=== PATIENT | female | born 1995 | race Caucasian/White ===

== ENCOUNTER 2024-10-16 09:03 | Outpatient (CLI) | payer OTHER, SELFPAY ==
--- OUTSIDE RECORDS SUMMARY | 2024-10-16 09:14 | XMS_ITS | Encounter Summary ---
Author Organization [facility] Address [facility] [place] [address] Care Team Providers Care Dev Technical Mgr Name Role Phone Benjamín Mckeon MD Primary Care Prov ider Encounter Details Date Type Department Care Team (Late st Contact Info) Description 05/22/2024 [employer] Message Enc [facility] Family Medicine - [address], [address] [place] [address] [phone] Benjamín Mckeon MD [address] [place] [address], [address] [address] Lymph Nodes Social History Tobacco Use Types Packs/Day Years Used Date Smoking Tobacco: Never Passive Smoke Exposure: Never Smokeless Tobacco: Never Alcohol Use Standard Drinks/Week Comments Not Currently 0 (1 standard drink = 0.6 oz pure alcohol) pt reports not actively drinking PHQ-2 Answer Date Recorded Patient Health Questionnaire-2 Score 2 05/08/2024 Comments No Sex and Gender Information Value Date Recorded Sex Assigned at Not on file Legal Sex Female 8:07 PM CDT Gender Identity Not on file Sexual Orientation Not on file documented as of this encounter Plan of Treatment Not on file documented as of this encounter Visit Diagnoses Not on filedocumented in this encounter Additional Health Concerns Assessment Noted Time PHQ-9 Depression Total Score: 6 05/08/19 25 10:51 AM ROVING HAND documented as of this encounter Care Teams Dev Technical Mgr Relationship Specialty Start Date End Date Benjamín Mckeon MD [address] [place] [address] [id number] PCP - General FAMILY PRACTICE 05/08/24 documented as of this encounter
--- OUTSIDE RECORDS SUMMARY | 2024-10-16 09:14 | XMS_ITS | Clinical Summary ---
Author Organization [facility] Address [address] [place] [address] Care Team Providers Care Nail Feeder Name Role Phone Benjamín Mckeon MD Primary Care Prov ider Allergies Active Allergy Reactions Criticality Noted Date Comments Tilactase Unknown 01/25/2017 Lactose Hives,Other (see comment) Medium 06/23/2012 Patient states she cannot digest dairy products. She gets rash and hives High sensitivity to lactose prefers not to ingest. High sensitivity to lactose prefers not to ingest. Patient states she cannot digest dairy products. She gets rash and hives High sensitivity to lactose prefers not to ingest. Patient states she cannot digest dairy products. She gets rash and hives Patient states she cannot digest dairy products. She gets rash and hives High sensitivity to lactose prefers not to ingest. Patient states she cannot digest dairy products. She gets rash and hives High sensitivity to lactose prefers not to ingest. Milk (Cow) Unknown 06/28/2015 Medications cholecalciferol 125 MCG (5000 UT) Tab Take 2,000 Units by mouth daily. Active famotidine 10 MG tabletIndication s:Gastroesophage al reflux disease, unspecified whether esophagitis present Take 1 tablet (10 mg total) by mouth as needed in the morning and 1 tablet (10 mg total) as needed in the evening for Heartburn. 60 tablet 2 2 Active vitamin B-12 (CYANOCOBALAMIN) (CYANOCOBALAMIN) 1000 mcg tablet Take 1 tablet (1,000 mcg total) by mouth daily. 3 Active clobetasol (TEMOVATE) 0.05 % cream APPLY A THIN FILM TOPICALLY TO HANDS TWICE DAILY FOR UP TO 2 WEEKS MAX AT A TIME 3 Active progesterone (PROMETRIUM) 200 MG capsule Take 1 capsule (200 mg total) by mouth. 3 Active escitalopram (LEXAPRO) 10 MG tablet Take 1 tablet (10 mg total) by mouth daily. 4 Active omeprazole (PRILOSEC) 20 MG capsuleIndicatio ns:Throat pain in adult Take 1 capsule (20 mg total) by mouth daily. 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 Female hypogonadism 10/31/2018 Class 3 severe obesity due t o excess calories without serious comorbidity with body mass index (BMI) of 40.0 to 44.9 in adult 2018 Hx of acute juvenile rheumatoid arthritis 2017 Overview (12/23/2022): questionably accurate Dx ([facility]') Lactose intolerance 11/12/2017 Obesity (BMI 30-39.9) 11/12/2017 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 Borderline diabetes mellitus 04/17/2016 Vitamin D deficiency 04/02/2016 Low vitamin D level 11/26/2015 Dermatitis 11/14/2015 Depression 10/24/2015 Ankle injury 10/02/2015 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 Primary amenorrhea 05/03/2015 Closed fracture of metatarsal bone 07/21/2012 Overview (12/23/2022): Immunizations Immunization Administration Dates Next Due Hepatitis A (Havrix [address]) 09/08/2019 Influenza Adult (Generic) 12/27/2017(Deferred: P atient Refused) Family History Medical History Relation Comments Alcohol Abuse Father Hypertension Father Diabetes Maternal Grandmother Diabetes Mother Hypertension Mother Diabetes Paternal Grandmother Relation Status Comments Father Alive Maternal Grandmother Mother Alive Paternal Grandmother Social History Tobacco Use Types Packs/Day Years Used Date Smoking Tobacco: Never Passive Smoke Exposure: Never Smokeless Tobacco: Never Tobacco Cessation:Counseling Given: No Alcohol Use Standard Drinks/Week Comments Not Currently 0 (1 standard drink = 0.6 oz pure alcohol) pt reports not actively drinking PHQ-2 Answer Date Recorded Patient Health Questionnaire-2 Score 2 05/08/2024 Comments No Sex and Gender Information Value Date Recorded Sex Assigned at Not on file Legal Sex Female 8:07 PM CDT Gender Identity Not on file Sexual Orientation Not on file Last Filed Vital Signs Vital Sign Reading Time Taken Comments Blood Pressure 136/90 05/08/2024 10:53 AM SLURRY TANK TENDER Pulse 76 05/08/2024 10:37 AM SLURRY TANK TENDER Temperature 36.5 C (97.7 F) 05/08/2024 10:37 AM SLURRY TANK TENDER Respiratory Rate 18 05/08/2024 10:3 7 AM SLURRY TANK TENDER Oxygen Saturation 98% 05/08/2024 10: 37 AM SLURRY TANK TENDER Inhaled Oxygen Concentration - - Weight 129.4 kg (285 lb 4.8 oz) 025 10:37 AM SLURRY TANK TENDER Height 172.7 cm (5' 8) 05/08/2024 10:3 7 AM SLURRY TANK TENDER Body Mass Index 43.38 05/08/2024 10:37 AM SLURRY TANK TENDER Plan of Treatment Health Maintenance Due Date Last Done Comments Kidney Health Evaluation 1995 Lipid Panel 1995 Annual Physical 07/07/1998 Diabetes: Retinopathy Eye Exam 07/07/2013 Hepatitis C 07/07/2013 DTaP, Tdap and Td Vaccines (1 - Tdap) 07/07/2014 Hepatitis B Vaccines (1 of 3 - 19+ 3-dose series) 07/07/2014 Pneumococcal Vaccine: Pediatrics (0 to 5 Years) and At-Risk Patients (6 to 49 Years) (1 of 2 - PCV) 07/07/2014 HPV Vaccines (1 - 3-dose SCDM series) 07/07/2022 COVID-19 Vaccine ( season) 2023 Hemoglobin A1C 06/18/2024 12/20/2023, 0204/2023, 08/13/2022, Additional history exists Cervical Cancer Screening Pap Smear (Age 21 to 29) Every 3 Years 05/27/2026 05/28/2023 Cervical Cancer Screening 05/27/2026 PHQ-2 (Physician [place]) Completed 05/08/2024 Meningococcal B Vaccine Aged Out No l onger eligible based on patient's age to complete this topic Meningococcal Vaccine Aged Out No kendall yvonne eligible based on patient's age to complete this topic RSV Immunizations Under 20 Months Aged Out No longer eligible based on patient's age to complete this topic Procedures Procedure Name Priority Date/Time Associated Diagnosis Comments HEMOGLOBIN, GLYCOSYLATED Routine 12/20/2023 from Last 3 Months or Most Recently Relevant to Health Maintenance Results * HEMOGLOBIN, GLYCOSYLATED (12/20/2023) HGB A1C 6.5 % 12/20/2023 [facility] LABORATORY Final Res ult from Last 3 Months or Most Recently Relevant to Health Maintenance Insurance [employer] Care Teams Nail Feeder Relationship Specialty Start Date End Date Benjamín Mckeon MD [address] [place] [address], [place] [address] PCP - General FAMILY PRACTICE 05/08/24
--- OUTSIDE RECORDS SUMMARY | 2024-10-16 09:14 | XMS_ITS | Clinical Summary ---
Author Organization [facility] Address [address] [place] [address] Phone Care Team Providers Care Chief Learning Officer Name Role Phone Sabra Stock MD Primary Care Provider [phone] Paul Harris MD Unavailable [phone] Allergies Active Allergy Reactions Criticality Noted Date Comments Lactase Unknown Low 01/25/2017 Lactose Hives,Other (see Comments) Medium 06/23/2012 Patient states she cannot digest [...] prefers not to ingest. Milk (Cow) Unknown Low 06/28/2015 Medications estradiol (VIVELLE) 0.1 MG/24HR PATCH BIWEEKLY APPLY 1 PATCH TOPICALLY TO THE SKIN 2 TIMES A WEEK Active cyanocobalamin 1000 MCG Tablet Take 1,000 mcg by mouth. 3 Active omeprazole (PriLOSEC) 20 MG CAPSULE DELAYED RELEASE Take 20 mg by mouth. 4 Active escitalopram (LEXAPRO) 10 MG Tablet Take 10 mg by mouth daily. 4 Active Vitamin D3 (Cholecalcifero l) 125 MCG Tablet Take 2,000 Units by mouth. 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 Family History Medical History Relation Name Comments Heart Attack Father Heart Disease Father Cancer Maternal Grandfather leukemi a Relation Name Status Comments Brother 1 Alive Brother 2 Alive Father Alive Maternal Grandfather Mother Alive Sister Alive Social History Tobacco Use Types Packs/Day Years Used Date Smoking Tobacco: Never Smokeless Tobacco: Never Tobacco Cessation:Counseling Given: No Alcohol Use Standard Drinks/Week Comments Never 0 (1 standard drink = 0.6 oz pur e alcohol) Comments Unknown Sex and Gender Information Value Date Recorded Sex Assigned at Not on file Legal Sex Female 4:14 PM CDT Gender Identity Not on file Sexual Orientation Not on file Last Filed Vital Signs Vital Sign Reading Time Taken Comments Blood Pressure 124/76 08/13/2023 1:18 PM CDT Pulse 110 08/13/2023 1:18 PM CDT Temperature 36.6 C (97.8 F) 08/13/2023 1:18 PM CDT Respiratory Rate 18 08/13/2023 1:18 PM CDT Oxygen Saturation 98% 08/13/2023 1:18 PM CDT Inhaled Oxygen Concentration - - Weight 128.5 kg (283 lb 4.8 oz) 08/13/2023 1:18 PM CDT Height 170.2 cm (5' 7) 08/13/2023 1:18 PM CDT Body Mass Index 44.37 08/13/2023 1:18 PM CDT Plan of Treatment Health Maintenance Due Date Last Done Comments Hepatitis C Virus (HCV) Screening 1995 TdaP Immunization 1995 Human Papillomavirus (HPV) Immunization (1 - 3-dose series) 07/07/2010 Hepatitis B Immunization (1 of 3 - 19+ 3-dose series) 07/07/2014 Pap Smear 07/07/2016 SARS-COV-2 Immunization (1 - 2023- season) 2023 Influenza Immunization (#1) 2024 Respiratory Syncytial Virus (RSV) Immunization (Adult) (1 - 1-dose 75+ series) 07/07/2070 Meningococcal Immunization (ACWY) Aged Out No longer eligible based on patient's age to complete this topic Pneumococcal Immunization Combined Aged Out No longer eligible based on patient's age to complete this topic Rotavirus Immunization Aged Out No lo nger eligible based on patient's age to complete this topic Insurance [employer] Care Teams Chief Learning Officer Relationship Specialty Start Date End Date Sabra Stock MD [address] [place] [id number] PCP - General Family Medicine 06/21/23 Paul Harris MD [address] [place] [address] [phone] Oncology 06/21/23
--- OUTSIDE RECORDS SUMMARY | 2024-10-16 09:14 | XMS_ITS | Continuity of Care Document ---
Author Organization [facility] Address [address] [address] Phone Care Team Providers Care Library Customer Service Clerk Name Role Phone Geetha Marcus MD Unavailable Unavailable Allergies, Adverse Reactions, Alerts Substance Reaction Status Criticality No Known Allergies Active No Inform ation Procedures Procedure Date Perc Test New (Level 4) OFFICE/OUTPATIENT VISIT Miscellaneous Private Pay Fees Advance Directives Directive Yes / No Effective Date File Name No Information Encounters Encounter Description Practice Location Reason(s) For Visit Diagnoses Date Provider Providers Copied on Encounter [facility], [address] [place] [address], [id number], tel:[phone] [facility] No Information 3 Amrit Iniguez. [address] [place] [address], [id number] , [place]. tel: [phone] New (Level 4) OFFICE/OUTPATI ENT VISIT [facility], [address] [place] [address], [id number], tel:[phone] [facility] eczema (chief complaint) Body mass index (BMI) 40.0-44.9, adultRashOther allergic rhinitisOther adverse food reaction, initial encounter 3 Amrit Iniguez. [address] [place] [address], [id number] , . tel: [phone] Referring Provider: Geetha Gutierreze, [address], [place], [address] . tel:[phone] Miscellaneous Private Pay Fees [facility], [address], [place], [place], [id number], tel:[phone] [facility] No Information Mis Prov. . Referring Provider: Geetha Gutierreze, [address], [place], [address] . tel:[phone] Family History Family Member Type Diagnosis Age At Onset Mother Problem Contact Dermatitis Payers Payer name Insurance type Covered green party ID Penny lindsay(molly Rubio CI [id number] Social History Type Description Quantity Date Captured Comments Sex Female Smoking Status No Information Chief Complaint And Reason For Visit No Information Reason For Referral Reason For Referral No Information History Of Present Illness Encounter Date Complaint History Of Josesito nt Illness eczema This is her init ial visit. She presents today for evaluation of eczema. Symptoms started about 6 months ago (end of July/early August) and are not improving. Lesions are on her hand, mainly her R hand. "Little white dogs with fluid. Her PCP prescribed topical steroids (topical triamcinalone), which helped somewhat but her skin became dry and scratchy. Lesions developed yellow drainage. Ventral surface of digits 2-4 of R hand most affected. Her PCP astutely noted she typically holds her phone in her R hand across those fingers. She has a h/o sensitive skin and has always been careful with topical products. No new products. She tries to avoid parabens due to an MD advising mom to avoiding parabens. She has abdominal cramps, diarrhea, vomiting, rash/eczema and swelling (foot) with cow's milk. She avoids milk. With accidental ingestions of milk, she has had projectile vomiting for 3 days and diarrhea. Skin testing was reportedly negative. Immunocap was negative in her blood in . 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 Her mom stopped the methotrexate and she did not follow-up. When she started to avoid milk, her joint pain improved. She has not had She has taken OA PRN for ARC symptoms. Her main triggers are mold, the fall, strong scents/odors and humidity/temperature changes. Allergy symptoms worsened after removing back to [facility]. She is curious if she could be allergic to dog as she lives with a dog. She has had headaches with Stevia. She was dx with a pituitary tumor at 19yo. Followed with [facility]. No h/o asthma. Meds: Estradiol, PrometriumPMH: Eczema, +H/o pituitary tumor (Dx 19yo)Sx: NoneNKDAFH: Mother - Contact dermatitisSocial: +1 dog at home. Lives in single family home, built in [address]. Non-smoker. 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 Functional Status Date Functional Assessmen t No Information Instructions Date Instruction Additional Infor katerina Giving encouragement to exercise Related to Body mass index [BMI] 40.0-44.9, adult Assessments Type Assessment Date No Information Patient Care Teams Name Effective Dates (start - stop) Status Members No Information
--- OUTSIDE RECORDS SUMMARY | 2024-10-16 09:15 | XMS_ITS | Encounter Summary ---
Author Organization [facility] Address Counts include 234 beds at the [facility] [place] [address] Care Team Providers Care Ux Developer Designer Name Role Phone Sabra Stock MD Primary Care Provider [phone] Myra Benjamín WILLOUGHBY MD Primary Care Prov ider Encounter Details Date Type Department Care Team (Late st Contact Info) Description 03/13/2022 magnetic.iot Message Enc [facility] Family Medicine - [place] [address] [facility], [address] [place] [address] [place] [address] [place] [address] Eczema affecting nail Social History Tobacco Use Types Packs/Day Years Used Date Smoking Tobacco: Never Smokeless Tobacco: Never Alcohol Use Standard Drinks/Week Comments Not Currently 0 (1 standard drink = 0.6 oz pure alcohol) pt reports not actively drinking PHQ-2 Answer Date Recorded PHQ-2 Score - If the patient scores above 3, please move on to questions 3-9 0 08/18/2021 Comments No Sex and Gender Information Value Date Recorded Sex Assigned at Not on file Legal Sex Female 8:07 PM CDT Gender Identity Not on file Sexual Orientation Not on file documented as of this encounter Plan of Treatment Not on file documented as of this encounter Visit Diagnoses Not on filedocumented in this encounter Additional Health Concerns Infection Onset Date Last Indicated Resolved Time COVID-19 Rule Out 12/23/2022 12/23/2022 12/23/2022 1:09 PM CDT Assessment Noted Time PHQ-9 Depression Total Score: 0 09/04/19 21 8:44 AM CDT documented as of this encounter Care Teams Ux Developer Designer Relationship Specialty Start Date End Date Sabra Stock MD PCP - General FAMILY PRACTICE 06/08/18 05/07/24 Benajmín Mckeon MD [address] [place] [id number] PCP - General FAMILY PRACTICE 05/08/24 documented as of this encounter
--- OUTSIDE RECORDS SUMMARY | 2024-10-16 09:15 | XMS_ITS | Clinical Summary ---
Author Organization [facility] Address [address] [place] [address] Care Team Providers Care Integrity Engineer Name Role Phone Sabra Stock MD Primary Care Provider [phone] Allergies Active Allergy Reactions Criticality Noted Date Comments Lactose Other (See comments),Hives Medium 06/23/2012 Patient states she cannot digest [...] to lactose prefers not to ingest. Milk Unknown Low 06/28/2015 Tilactase Unknown Low 01/25/2017 Medications cholecalciferol (VITAMIN D-3) 5,000 unit tablet Take 1 tablet (5,000 Units total) by mouth every morning 7 Active omeprazole (PriLOSEC) 20 mg capsuleIndication s:Treatment of Non-Bleeding Gastric Disorder Take 1 capsule (20 mg total) by mouth every morning Active escitalopram (LEXAPRO) 10 mg tabletIndications :Anxiety with Depression Take 1 tablet (10 mg total) by mouth every morning 4 Active cyanocobalamin (Vitamin B-12) 1,000 mcg tabletIndications :Prevention of Vitamin B12 Deficiency Take 1 tablet (1,000 mcg total) by mouth daily Active medroxyPROGESTERo ne (PROVERA) 10 mg tabletIndications :Secondary Amenorrhea Take 1 tablet (10 mg total) by mouth daily 14 tablet 6 4 Active estradioL (VIVELLE-DOT) 0.1 mg/24 hrIndications:Fem kali Hypogonadism Place 1 patch on the skin 2 (two) times a week 24 patch 3 5 07/11/19 Active Active Problems Problem Noted Date Diagnosed Date Class 3 severe obesity due t o excess calories without serious comorbidity with body mass index (BMI) of 40.0 to 44.9 in adult 06/15/2023 Abnormal uterine bleeding 04/11/2023 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 COVID-19 virus infection 02/13/2020 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 Female hypogonadism 10/31/2018 Hx of acute juvenile rheumatoid arthritis 2017 Overview (10/21/2022): questionably accurate Dx (Childrens') Lactose intolerance 11/12/2017 Obesity (BMI 30-39.9) 11/12/2017 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 Borderline diabetes mellitus 04/17/2016 Vitamin D deficiency 04/02/2016 Low vitamin D level 11/26/2015 Dermatitis 11/14/2015 Depression 10/24/2015 Ankle injury 10/02/2015 Intracranial mass 07/05/2015 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 Primary amenorrhea 05/03/2015 Closed fracture of metatarsal bone 07/21/2012 Overview (10/21/2022): Encounters Date Type Department Care Team Description 10/02/2024 Orders Only [facility] Neurosurgery [address], [address] [place] [address] Mykel Manzanares MD Suprasellar mass (Primary Dx) from Last 3 Months Immunizations Immunization Administration Dates Next Due Hep A, Adult 09/08/2019 Surgical History Surgery Date Site/Laterality Comments OTHER SURGICAL HISTORY 03/29/2006 - 03/28/2007 steroid injection in wrist under anesthesia EXAMINATION UNDER ANESTHESIA 05/28/2023 EXAM UNDER ANESTHESIA HM PAP SMEAR 05/28/2023 PAP SMEAR COMBINED HYSTEROSCOPY DIAGNOSTIC / D&C DX HYSTEROSCOPY, D&C, TRANSVAGINAL ULTRASOUND Medical History Medical History Date Comments Personal history of arthritis Ar thritis - (Added by TW Conv) Family History Medical History Relation Name Comments Anesthesia problems Maternal Grandmother PONV Cancer Maternal Grandmother Diabetes Maternal Grandmother Diabetes Mother Family history of diabetes mellitus - (Added by TW Conv) Hypertension Mother Family history of hypertension - (Added by TW Conv) Cancer Other 1 Reported Family History Of Cancer - grandfather, great uncle (Added by TW Conv) Hypertension Other 2 Reported Previo us High Blood Pressure - mother (Added by TW Conv) Diabetes Other 3 Diabetes Mellit us - mother, grandmothers, aunt (Added by TW Conv) Lung disease Other 4 Pulmonary Disea se - father, great aunts, great uncle (Added by TW Conv) Blindness Other 5 Legally Blind ( [place] Definition) - great grandfather ( Retinitis Pigmentosa) (Added by TW Conv) Diabetes Paternal Grandmother Stroke Paternal Grandmother Thyroid disease Sister Thyroid trou ble - (Added by TW Conv) Relation Name Status Comments Maternal Grandmother Mother Other 1 Other 2 Other 3 Other 4 Other 5 Paternal Grandmother Sister Social History Tobacco Use Types Packs/Day Years Used Date Smoking Tobacco: Never Smokeless Tobacco: Never Tobacco Cessation:Counseling Given: Not Answered AUDIT-C Answer Date Recorded Q1: How often do you have a drink containing alcohol? Never 05/28/2023 Q2: How many drinks containi ng alcohol do you have on a typical day when you are drinking? Patient does not drink Q3: How often do you have si x or more drinks on one occasion? Never 05/28/2023 Personal Safety Answer Date Recorded Have you ever been in or are you currently in a harmful physical or emotional relationship or is someone making you feel afraid or unsafe? Denies 05/28/2023 Comments No Sex and Gender Information Value Date Recorded Sex Assigned at Not on file Legal Sex Female 4:53 AM INSPECTOR BARREL Gender Identity Not on file Sexual Orientation Not on file Obstetrics History Para Term AB IAB SAB Ectopic Multiple Livin g Live Births 0 0 0 0 0 0 0 0 0 0 0 Last Filed Vital Signs Vital Sign Reading Time Taken Comments Blood Pressure 136/97 12/20/2023 12:01 PM CDT Pulse 87 12/20/2023 12:01 PM CDT Temperature 36.6 C (97.9 F) 05/28/2023 2:30 PM INSPECTOR BARREL Respiratory Rate 26 05/28/2023 2:30 PM INSPECTOR BARREL Oxygen Saturation 99% 05/28/2023 2:30 PM INSPECTOR BARREL Inhaled Oxygen Concentration - - Weight 131.1 kg (289 lb) 12/20/2023 12:01 PM CDT Height 170.2 cm (5' 7) 12/20/2023 12:01 PM CDT Body Mass Index 45.26 12/20/2023 12:01 PM CDT Plan of Treatment Health Maintenance Due Date Last Done Comments Albumin Creatinine Ratio, Urine 1995 Depression Screening 1995 Hepatitis C Screening 1995 eGFR 1995 Dilated Eye Exam 1995 Foot Exam 1995 DTaP/Tdap/Td Vaccine (1 - Tdap) 07/07/2006 Varicella Vaccines (1 of 2 - 13+ 2-dose series) 07/07/2008 Hepatitis B Screening 07/07/2013 Regular Well Visit/Exam 18-64 07/07/2013 Pneumococcal vaccine <65 (1 of 2 - PCV) 07/07/2014 Lipid Panel 08/14/2023 08/13/2022, 08/13/2022 Cervical Cancer Screening 05/27/2024 05/28/2023 Hemoglobin A1C 06/18/2024 12/20/2023, 07/27, 08/13/2022, Additional history exists Influenza Vaccine (#1) 2024 HPV Vaccines Aged Out No longer eligi ble based on patient's age to complete this topic Procedures Procedure Name Priority Date/Time Associated Diagnosis Comments POCT HEMOGLOBIN A1C Routine 12/20/2023 1 2:07 PM CDT Type 2 diabetes mellitus without complication, without long-term current use of insulin (HCC) PAP ONLY Routine 05/28/2023 12:43 PM INSPECTOR BARREL LIPID PANEL Routine 08/13/2022 8:08 AM CDT from Last 3 Months or Most Recently Relevant to Health Maintenance Results * POCT hemoglobin A1c (12/20/2023 12:07 PM CDT) Hemoglobin A1C, POC 6.5 4.0 - 5.6 % Blood 12/20/2023 12:0 7 PM CDT us Linwood Grant MD POINT OF CARE TEST ORDERABLES Fi nal Result * Pap Only (Cytology Component) (05/28/2023 12:43 PM INSPECTOR BARREL) Pap test 05/28/2023 12:4 3 PM INSPECTOR BARREL 05/28/2023 2:23 PM INSPECTOR BARREL Narrative 06/04/2023 12:44 PM INSPECTOR BARREL EPIC results best viewed via link to PDF [facility] [place] [address] Note to Patients: This report may contain a detailed description of human tissue sent by a health care provider to the laboratory for pathologic evaluation. The content of this report is essential for diagnosis and may provide important critical findings. This information may be unfamiliar to patients to review without a medical professional present. It is advised that the patient review this report in the presence of a health care provider who can answer questions and explain the details. CYTOPATHOLOGY REPORT FINAL Patient Name: CAN SHELBY Gender: Luis : 1995 (Age: 27) Address: [address] [place] [address] [address] [place] [place] [id number] Hospital #: [id number] Service: Surgery Location: [facility] OR POD Patient Type: [facility] Taken: 05/28/2023 Received: 05/28/2023 Accessioned: 06/02/2023 Reported: 06/04/2023 Physician(s): Deya Harman M.D. FINAL INTERPRETATION SOURCE OF SPECIMEN Liquid based Thin Prep pap: STATEMENT OF ADEQUACY - Satisfactory for evaluation - Endocervical cells/transformation zone sample present GENERAL CATEGORIZATION: - Negative for squamous intraepithelial lesion or malignancy jhosie/06/04/2023 12:44 ALDO Sung(ASCP) Report Electronically Reviewed and Signed Out By ALDO Sung(ASCP) 06/04/2023 12:44:06 Cervicovaginal Cytology (Pap Test) Disclaimer: The Pap test is a screening test used to detect cervical cancer and its precursors; it is not a diagnostic procedure. False negative and false positive results do occur. Pap test results should be interpreted in the context of pertinent clinical information and biopsy results as indicated. [facility] Clinical Laboratory Improvement Amendments (CLIA) mandate that cytologic and histologic results be correlated for laboratory quality assurance supervisor chassis & improvement standards. FOR ALL HIGH-GRADE CASES we request submission of follow-up histological material and/or reports that have not been previously provided so that we may fulfill said required standards. Gross Description A. Liquid based Thin Prep pap: Cervical/vaginal - Screening ThinPrep Clinical Diagnosis and History Last Menstrual Period: Not Provided. The patient is a 27 year old woman with abnormal uterine bleeding. Report Images and scanned documents, if included only viewable in PDF version The performance characteristics of some immunohistochemical stains, in-situ hybridization and fluorescence in-situ hybridization tests and immunophenotyping by flow cytometry cited in this report (if any) were determined by the Surgical Pathology Department at [facility] as part of an ongoing quality reviewer program and in compliance with federally mandated regulations drawn from the Clinical Laboratory Improvement Act of 1988 (CLIA '88). Some of these tests rely on the use of analyte specific reagents and are subject to specific labeling requirements by the US Food and Drug Administration. Such diagnostic tests may only be performed in a facility that is certified by the Department of Health and Human Services as a high complexity laboratory under CLIA '88. The FDA has determined that such clearance or approval is not necessary. This test is used for clinical purposes. It should not be regarded as investigational or for research. Nevertheless, federal rules concerning the medical use of analyte specific reagents require that the following disclaimer be attached to the report: This test was developed and its performance characteristics determined by the Surgical Pathology Department of [facility]. It has not been cleared or approved by the U. S. Food and Drug Administration. Deya Harman MD LAB CYTOLOGY ORDERABLES Lilly l Result * (ABNORMAL) Lipid panel (08/13/2022 8:08 AM CDT) Cholesterol 222(H) <200 mg/dL [facility] HDL 36(L) > OR = 50 mg/dL [facility] Triglycerides 149 <150 mg/dL [facility] LDL 158(H) mg/dL (calc) [facility] Comment: Reference range: <100 Desirable range <100 mg/dL for primary prevention; <70 mg/dL for patients with CHD or diabetic patients with > or = 2 CHD risk factors. LDL-C is now calculated using the Jasen-West calculation, which is a validated novel method providing better accuracy than the Friedewald equation in the estimation of LDL-C. Jasen SS et al. ROOSEVELT. 2013;310(19): 4992-0824 (http://education.[employer]/faq/OEH770) Chol/HDL ratio 6.2(H) <5.0 (calc) [facility] Non-HDL, (LDL+VLDL) 186(H) <130 mg/dL (calc) [facility] Comment: For patients with diabetes plus 1 major ASCVD risk factor, treating to a non-HDL-C goal of <100 mg/dL (LDL-C of <70 mg/dL) is considered a therapeutic option. 08/13/2022 8:08 AM CDT 08/13/2022 8:13 AM CDT Linwood Grant MD LAB BLOOD ORDERABLES Final Resul t [facility] [address] [place] [address] from Last 3 Months or Most Recently Relevant to Health Maintenance Insurance AETNA [facility] HMO [facility] HMO Care Teams Integrity Engineer Relationship Specialty Start Date End Date Sabra Stock MD [address] [facility] [address] [place] [address] PCP - General 04/23/17
--- OUTSIDE RECORDS SUMMARY | 2024-10-16 09:15 | XMS_ITS | Clinical Summary ---
Author Organization [facility] Address [address] [place] [address] Care Team Providers Care Drum Saw Operator Name Role Phone Sabra Stock MD Primary Care Provider [phone] [facility],non-owned Affiliates and Associated Physician Practices is amultiple site organization consisting of ambulatory clinics and hospital sitesin [place], [place], [place] and [place]. This disclosure is being madepursuant to the Care Everywhere program and may not contain all information available regarding this patient. Last updated 17[employer] [facility] Allergies Active Allergy Reactions Criticality Noted Date Comments Lactose Other Medium 06/23/2012 Patient states she cannot digest dairy products. She gets rash and hives High sensitivity to lactose prefers not to ingest. Medications * Be aware that medications may not be up to date on this document. Alwaysverify current medications with the patient. vitamin D3 (CHOLECACIFEROL ) 5000 UNITS Take 1 (one) tablet by mouth once daily Active triamcinolone acetonide (Kenalog) 0.1 % cream APPLY TOPICALLY TO THE AFFECTED AREA TWICE DAILY 2 Active Cyanocobalamin (B-12 PO) Active ondansetron, disintegrating, (Zofran ODT) 4 MG tablet Take 1 (one) tablet by mouth every 6 hours as needed for Nausea/Vomitin g Allow tablet to dissolve on the tongue 20 tablet 3 Active ferrous sulfate 325 (65 FE) MG tablet Take 1 (one) tablet by mouth once daily 100 tablet 3 Active clobetasol (Temovate) 0.05 % cream APPLY A THIN FILM TOPICALLY TO HANDS TWICE DAILY FOR UP TO 2 WEEKS MAX AT A TIME 3 Active mupirocin (Bactroban) 2 % ointment APPLY TOPICALLY TO THE AFFECTED AREA THREE TIMES DAILY FOR 7 DAYS 2 Active metoclopramide (Reglan) 10 MG tablet Take 1 (one) tablet by mouth 4 times daily - before meals & nightly 30 tablet 3 Active Progesterone (Prometrium) 200 MG capsule Take 2 (two) capsules by mouth at bedtime 60 capsule 2 3 Active Active Problems Problem Noted Date Diagnosed Date History of pituitary adenoma 04/14/2023 Hypopituitarism 01/30/2022 BMI 40.0-44.9, adult 02/10/2021 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 Female hypogonadism 10/31/2018 Vitamin D deficiency 10/31/2018 Intracranial mass 07/05/2015 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 Closed fracture of metatarsal bone 07/21/2012 Overview (12/27/2014): Resolved Problems Problem Noted Date Diagnosed Date Resolved Date Brain lesion 07/05/2015 10/31/2018 Immunizations Immunization Administration Dates Next Due HEP A VACCINE, ADULT 09/08/2019 Family History Medical History Relation Name Comments Leukemia Maternal Grandfather Diabetes - Type 2 Maternal Grandmother Diabetes - Type 2 Mother Hypertension Mother Hypertension Paternal Grandfather Diabetes - Type 2 Paternal Grandmother Relation Name Status Comments Maternal Grandfather Maternal Grandmother Alive Mother Alive Paternal Grandfather Paternal Grandmother Alive Social History Tobacco Use Types Packs/Day Years Used Date Smoking Tobacco: Never Smokeless Tobacco: Never Tobacco Cessation:Counseling Given: Not Answered Alcohol Use Standard Drinks/Week Comments No 0 (1 standard drink = 0.6 oz pur e alcohol) Comments No Sex and Gender Information Value Date Recorded Sex Assigned at Female 08/02/2021 8:01 AM CDT Legal Sex Female 8:41 PM CDT Gender Identity Female 08/02/2021 8:01 AM CDT Sexual Orientation Straight 08/02/2021 8: 01 AM CDT Last Filed Vital Signs Vital Sign Reading Time Taken Comments Blood Pressure 132/86 07/21/2022 2:38 PM CDT Pulse 107 07/20/2022 5:19 PM CDT Temperature 36.6 C (97.8 F) 07/20/2022 9:09 AM CDT Respiratory Rate 20 07/20/2022 5:19 PM CDT Oxygen Saturation 97% 07/20/2022 5:19 PM CDT Inhaled Oxygen Concentration - - Weight 128.4 kg (283 lb) 07/21/2022 2:20 PM CDT Height 170.2 cm (5' 7) 07/21/2022 2:20 PM CDT Body Mass Index 44.32 07/21/2022 2:20 PM CDT Plan of Treatment Health Maintenance Due Date Last Done Comments HIV SCREENING 07/07/2010 HEPATITIS C SCREENING 07/03/2013 DTAP/TDAP/TD VACCINES (1 - Tdap) 07/07/2014 HEPATITIS B VACCINE (1 of 3 - 19+ 3-dose series) 07/07/2014 PAP SMEAR 07/07/2016 HPV VACCINE (1 - 3-dose SCDM series) 07/07/2022 COVID-19 VACCINE (1 - 2023-2 5 season) 2023 DEPRESSION SCREENING 03/29/2024 INFLUENZA VACCINE (#1) 2024 ZOSTER VACCINE (1 of 2) 07/07/2045 HIB VACCINE Aged Out No longer eligi ble based on patient's age to complete this topic MENINGOCOCCAL (Group B) VACC INE SHARED DECISION-MAKING Aged Out No longer eligibl e based on patient's age to complete this topic MENINGOCOCCAL GROUPS A/C/Y/W VACCINE Aged Out No longer eligible b ased on patient's age to complete this topic PNEUMOCOCCAL VACCINE Aged Out No long er eligible based on patient's age to complete this topic [place] [address] [employer] MEDICAID - OUT OF STATE [employer] Advance Directives Documents on File Type Date Recorded Patient Inspector Aide Expl anation Adv Directive/Living Will/POA 06/23/2012 10:50 PM Care Teams Drum Saw Operator Relationship Specialty Start Date End Date Sabra Stock MD [facility] [place] [address] PCP - General 09/12/18
--- OUTSIDE RECORDS SUMMARY | 2024-10-16 09:15 | XMS_ITS | Encounter Summary ---
Author Organization [facility] Address [facility] [place] [address] Care Team Providers Care Claims Configuration Analyst Name Role Phone Sabra Stock MD Primary Care Provider Myra Benjamín WILLOUGHBY MD Primary Care Prov ider Encounter Details Date Type Department Care Team (Late st Contact Info) Description 03/24/2022 optionsXpresst Message Enc [facility] Family Medicine - [place] [address], [address] [place] [address] [place] [address] [place] [address] Dietitian Referral Social History Tobacco Use Types Packs/Day Years [...] on file Sexual Orientation Not on file COVID-19 Exposure Response Date Recorded In the last 10 days, have yo u been in contact with someone who was confirmed or suspected to have Coronavirus/COVID-19? No / Unsure 03/17/2022 12:52 PM HAMMER REPAIRER documented as of this encounter Plan of Treatment Not on file documented as of this encounter Visit Diagnoses Not on filedocumented in this encounter Additional Health Concerns Infection Onset Date Last Indicated Resolved Time COVID-19 Rule Out 12/23/2022 12/23/2022 12/23/2022 1:09 PM CDT Assessment Noted Time PHQ-9 Depression Total Score: 0 09/04/19 21 8:44 AM CDT documented as of this encounter Care Teams Claims Configuration Analyst Relationship Specialty Start Date End Date Sabra Stock MD PCP - General FAMILY PRACTICE 06/08/18 05/07/24 Benjamín Mckeon MD [address] [place] [address] PCP - General FAMILY PRACTICE 05/08/24 documented as of this encounter
--- OUTSIDE RECORDS SUMMARY | 2024-10-16 09:15 | XMS_ITS | Encounter Summary ---
Author Organization [facility] Address [facility] [place] [address] Care Team Providers Care Medical Physiologist Name Role Phone Sabra Stock MD Primary Care Provider [phone] Myra Benjamín WILLOUGHBY MD Primary Care Prov ider Encounter Details Date Type Department Care Team (Late st Contact Info) Description 09/11/2020 [employer] Message Enc [facility] Medical [facility] Family Medicine [place] [address] [place] [address] [employer] Provider Referral update Social History Tobacco Use Types Packs/Day Years Used Date Smoking Tobacco: Never Smokeless Tobacco: Never Alcohol Use Standard Drinks/Week Comments Not Currently 0 (1 standard drink = 0.6 oz pur e alcohol) OCCASSIONAL PHQ-2 Answer Date Recorded PHQ-2 Score - If the patient scores above 3, please move on to questions 3-9 0 09/03/2020 Comments No Sex and Gender Information Value Date Recorded Sex Assigned at Not on file Legal Sex Female 8:07 PM CDT Gender Identity Not on file Sexual Orientation Not on file COVID-19 Exposure Response Date Recorded In the last month, have you been in contact with someone who was confirmed or suspected to have Coronavirus / COVID-19? No / Unsure 09/03/2020 8:30 AM CDT documented as of this encounter Plan of Treatment Not on file documented as of this encounter Visit Diagnoses Not on filedocumented in this encounter Additional Health Concerns Infection Onset Date Last Indicated Resolved Time COVID-19 Rule Out 12/23/2022 12/23/2022 12/23/2022 1:09 PM CDT Assessment Noted Time PHQ-9 Depression Total Score: 0 09/04/19 21 8:44 AM CDT documented as of this encounter Care Teams Medical Physiologist Relationship Specialty Start Date End Date Sabra Stock MD PCP - General FAMILY PRACTICE 06/08/18 05/07/24 Myra Benjamín WILLOUGHBY MD [address] [place] [address] PCP - General FAMILY PRACTICE 05/08/24 documented as of this encounter
--- OUTSIDE RECORDS SUMMARY | 2024-10-16 09:15 | XMS_ITS | Referral Summary ---
Author Organization [facility] Address [address] [place] [address] Care Team Providers Care Gold Tooler Name Role Phone Sabra Stock MD Primary Care Provider [phone] Encounters Date Type Department Care Team Description 10/02/2024 Orders Only [facility] Neurosurgery [address], [address] [place] [address] Mykel Manzanares MD Suprasellar mass (Primary Dx) from Last 3 Months Allergies Active Allergy Reactions Criticality Noted Date [...] fracture of metatarsal bone 07/21/2012 Overview (10/21/2022): Immunizations Immunization Administration Dates Next Due Hep A, Adult 09/08/2019 Social History Tobacco Use Types Packs/Day Years [...] on file Legal Sex Female 4:53 AM ADMINISTRATIVE SERVICES COORDINATOR Gender Identity Not on file Sexual Orientation Not on file Last Filed Vital Signs Vital Sign Reading Time Taken Comments Blood Pressure 136/97 12/20/2023 12:01 PM CDT Pulse 87 12/20/2023 12:01 PM CDT Temperature 36.6 C (97.9 F) 05/28/2023 2:30 PM ADMINISTRATIVE SERVICES COORDINATOR Respiratory Rate 26 05/28/2023 2:30 PM ADMINISTRATIVE SERVICES COORDINATOR Oxygen Saturation 99% 05/28/2023 2:30 PM ADMINISTRATIVE SERVICES COORDINATOR Inhaled Oxygen Concentration - - Weight 131.1 kg (289 lb) 12/20/2023 12:01 PM CDT Height 170.2 cm (5' 7) 12/20/2023 12:01 PM CDT Body Mass Index 45.26 12/20/2023 12:01 PM CDT Plan of Treatment Not on file Procedures Procedure Name Priority Date/Time Associated Diagnosis Comments POCT HEMOGLOBIN A1C Routine 12/20/2023 1 2:07 PM CDT Type 2 diabetes mellitus without complication, without long-term current use of insulin (HCC) PAP ONLY Routine 05/28/2023 12:43 PM ADMINISTRATIVE SERVICES COORDINATOR LIPID PANEL Routine 08/13/2022 8:08 AM CDT from Last 3 Months or Most Recently Relevant to Health Maintenance Results * POCT hemoglobin A1c (12/20/2023 12:07 PM CDT) Hemoglobin A1C, POC 6.5 4.0 - 5.6 % Blood 12/20/2023 12:0 7 PM CDT us Linwood Garnt MD POINT OF CARE TEST ORDERABLES Fi nal Result * Pap Only (Cytology Component) (05/28/2023 12:43 PM ADMINISTRATIVE SERVICES COORDINATOR) Pap test 05/28/2023 12:4 3 PM ADMINISTRATIVE SERVICES COORDINATOR 05/28/2023 2:23 PM ADMINISTRATIVE SERVICES COORDINATOR Narrative 06/04/2023 12:44 PM ADMINISTRATIVE SERVICES COORDINATOR EPIC results best viewed via link to PDF [facility] [place] [address] Note to Patients: This report may contain [...] Gender: Luis : 1995 (Age: 27) Address: [address] [place] [address] [address] [place] [place] [id number] Hospital #: [id number] Service: Surgery Location: [facility] Patient Type: [facility] Taken: 05/28/2023 Received: 05/28/2023 Accessioned: 06/02/2023 Reported: 06/04/2023 Physician(s): Deya Harman M.D. FINAL INTERPRETATION SOURCE OF SPECIMEN Liquid based Thin Prep pap: STATEMENT OF ADEQUACY - Satisfactory for evaluation - Endocervical cells/transformation zone sample present GENERAL CATEGORIZATION: - Negative for squamous intraepithelial lesion or malignancy osie/06/04/2023 12:44 ALDO Sung(ASCP) Report Electronically Reviewed and [...] clinical information and biopsy results as indicated. [facility] Clinical Laboratory Improvement Amendments (CLIA) mandate that cytologic and histologic results be correlated for laboratory quality supervisor & improvement standards. FOR ALL HIGH-GRADE CASES [...] determined by the Surgical Pathology Department at [facility] as part of an ongoing quality rep program and in compliance with federally mandated [...] determined by the Surgical Pathology Department of [facility]. It has not been cleared or approved by the U. S. Food and Drug Administration. us Deya Harman MD LAB CYTOLOGY ORDERABLES Lilly [...] factors. LDL-C is now calculated using the Darren calculation, which is a validated novel method providing better accuracy than the Friedewald equation in the estimation of LDL-C. Jasen SS et al. ROOSEVELT. 2013;310(19): 5201-5666 (http://education.adhoclabs/faq/XNB068) Chol/HDL ratio 6.2(H) <5.0 (calc) [facility] Non-HDL, (LDL+VLDL) 186(H) <130 mg/dL (calc) [facility] Comment: For patients with diabetes plus 1 major ASCVD risk factor, treating to a non-HDL-C goal of <100 mg/dL (LDL-C of <70 mg/dL) is considered a therapeutic option. 08/13/2022 8:08 AM CDT 08/13/2022 8:13 AM CDT us Linwood Grant MD LAB BLOOD ORDERABLES Final Resul t [email or web address] [address] [place] [address] from Last 3 Months or Most Recently Relevant to Health Maintenance Insurance [facility] H[facility] Care Teams Gold Tooler Relationship Specialty Start Date End Date Sabra Stock MD [address] [facility] [address] [place], [place] [phone] PCP - General 04/23/17
--- OUTSIDE RECORDS SUMMARY | 2024-10-16 09:15 | XMS_ITS | Encounter Summary ---
Author Organization [facility] Address [facility] [place] [address] Care Team Providers Care Data Conversion Analyst Name Role Phone Sabra Stock MD Primary Care Provider [phone] Myra Benjamín WILLOUGHBY MD Primary Care Prov ider Encounter Details Date Type Department Care Team (Late st Contact Info) Description 09/07/2022 [employer] Message Enc [facility] Family [facility] - [place] [address] [facility] [address], [address] [place] [address] [place] [address] [place] [address] Iron/Headaches Social History Tobacco Use Types Packs/Day Years Used Date Smoking Tobacco: Never Passive Smoke Exposure: Never Smokeless Tobacco: Never Alcohol Use Standard Drinks/Week Comments Not Currently 0 (1 standard drink = 0.6 oz pure alcohol) pt reports not actively drinking PHQ-2 Answer Date Recorded Patient Health Questionnaire-2 Score 2 09/04/2022 Comments No Sex and Gender Information Value Date Recorded Sex Assigned at Not on file Legal Sex Female 8:07 PM CDT Gender Identity Not on file Sexual Orientation Not on file COVID-19 Exposure Response Date Recorded In the last 10 days, have yo u been in contact with someone who was confirmed or suspected to have Coronavirus/COVID-19? No / Unsure 09/04/2022 10:28 AM CDT documented as of this encounter Plan of Treatment Not on file documented as of this encounter Visit Diagnoses Not on filedocumented in this encounter Additional Health Concerns Infection Onset Date Last Indicated Resolved Time COVID-19 Rule Out 12/23/2022 12/23/2022 12/23/2022 1:09 PM CDT Assessment Noted Time PHQ-9 Depression Total Score: 12 023 10:49 AM CDT documented as of this encounter Care Teams Data Conversion Analyst Relationship Specialty Start Date End Date Sabra Stock MD PCP - General FAMILY PRACTICE 06/08/18 05/07/24 Benjamín Mckeon MD [address] [place] [address] PCP - General FAMILY PRACTICE 05/08/24 documented as of this encounter
--- OUTSIDE RECORDS SUMMARY | 2024-10-16 09:15 | XMS_ITS | Encounter Summary ---
Author Organization [facility] Address [address] [facility] [place] [address] Care Team Providers Care Tourist Escort Name Role Phone Sabra Stock MD Primary Care Provider [phone] Reason for Visit * Reason Onset Date Comments Question 12/30/2021 Encounter Details Date Type Department Care Team (Late st Contact Info) Description 12/30/2021 Telephone [facility] [address] [place] [id number] Chele Fenton MD [address] [facility] [address] [place] [address] Question Social History Tobacco Use Types Packs/Day Years Used Date Smoking Tobacco: Never Smokeless Tobacco: Never Alcohol Use Standard Drinks/Week Comments No 0 (1 standard drink = 0.6 oz pur e alcohol) Comments No Sex and Gender Information Value Date Recorded Sex Assigned at Female 08/02/2021 8:01 AM CDT Legal Sex Female 8:41 PM CDT Gender Identity Female 08/02/2021 8:01 AM CDT Sexual Orientation Straight 08/02/2021 8: 01 AM CDT documented as of this encounter Miscellaneous Notes * Telephone Encounter - Joey Purcellta - 12/30/2021 8:33 AM CDT Pt calling with concerns with cloting she is having .. weird case to her .. she is on day 6 of her cycle and last day of medication (Prometurium) clotting started on Sun, late in the evening then fewhrs later. clotting also yesterday .. she is feeling worn out and took off work , also yesterday took a three hour nap.. Please contact # [phone] documented in this encounter Plan of Treatment Not on file documented as of this encounter Visit Diagnoses Not on filedocumented in this encounter Care Teams Tourist Escort Relationship Specialty Start Date End Date Sabra Stock MD [address] [place] [phone] PCP - General 09/12/18 documented as of this encounter
--- OUTSIDE RECORDS SUMMARY | 2024-10-16 09:15 | XMS_ITS | Encounter Summary ---
Author Organization [facility] Address [address] [place] [address] Care Team Providers Care Oil Producer Name Role Phone Sabra Stock MD Primary Care Provider [phone] Reason for Visit * Reason Onset Date Comments MEDICATION REFILL 05/14/2022 Encounter Details Date Type Department Care Team (Late st Contact Info) Description 05/14/2022 Refill [facility] [address] [place] [address] Chele Fenton MD [address] [place] [address] [address] [place] [address] MEDICATION REFILL Social History Tobacco Use Types Packs/Day Years [...] encounter Miscellaneous Notes * Telephone Encounter - Lianet Garza RN - 05/14/2022 10:27 AM SENIOR TRIAL ATTORNEY Refill Request Approved. Mychart sent to make an appt Asha Clemons SYDNEY: 02/10/2021 NOV due: 1 yr NOV scheduled: Visit date not found LRF:02/10/2021 Qty Disp: 12 # of refills: 5 Allergies: Allergies Allergen Reactions ??? Lactose Other Patient states she cannot digest dairy products. She gets rash and hives High sensitivity to lactose prefers not to ingest. Pended Medication Order: Requested Prescriptions Signed Prescriptions Disp Refills ??? Progesterone (Prometrium) 200 MG capsule 12 capsule 2 Sig: Take 1 (one) capsule by mouth at bedtime Authorizing Provider: CHELE FENTON Ordering User: LIANET GARZA OR TRIAL ATTORNEY documented in this encounter Plan of Treatment Not on file documented as of this encounter Visit Diagnoses Not on filedocumented in this encounter Care Teams Oil Producer Relationship Specialty Start Date End Date Sabra Stock MD [address] [place] [id number] PCP - General 09/12/18 documented as of this encounter
--- OUTSIDE RECORDS SUMMARY | 2024-10-16 09:15 | XMS_ITS | Data Portability ---
Author Organization [facility] Address [address] [place] [address] Care Team Providers Care Ingot Buggy Operator Name Role Phone COOPER ROSAS Primary Care Provider Assessment No assessment recorded. Plan of Treatment Reminders Order Date Submit Date Provider Last Modified By Organization Details Last Modified Time Details Appointments ANY 15 2024 10:00A M ELLE MORALES Not available Not available Not available Lab iron + total iron-bind ing capacity (TIBC), serum 2024 025 [facility], [address] [place] [address], [address], [place], [address], 09/09/2024 08:20:59 ferritin, serum or plasma 2024 025 [facility], [address] [place] [address], [address], [place], [address], 09/09/2024 08:21:01 vitamin D, 25-hydrox y, total, serum 2024 025 [facility], [address] [facility], [address], [place], [address], 09/09/2024 08:21:04 cobalamin and folate panel, serum 2024 025 [facility], [address] [place] [address], [address], [place], [address], 09/09/2024 08:20:58 CMP, serum or plasma 2024 025 [facility], [address], [place], [address], 09/09/2024 08:20:57 lipid panel, serum or plasma 2024 025 [facility], [address], [place], [address], 09/09/2024 08:20:56 CBC w/ auto diff 2024 025 [facility], [address], [place], [address], 09/09/2024 08:21:02 TSH + free T4, serum 2024 025 [facility], [address], [place], [address], 09/09/2024 08:20:55 HbA1c (hemoglob in A1c), blood 2024 025 [facility], [address], [place], [address], 09/09/2024 08:21:00 Referral None recorded. Procedures None recorded. Surgeries None recorded. Imaging polysomno gram, split night 2024 025 [facility] ([facility]), [address] [place] [address], [address], 10/02/2024 12:56:02 Medication Orders None recorded. Patient TargetsNo targets recorded. Patient Instructions Encounter Date Encounter Id Patient Instructions Last Modified By Organization Details Last Modified Time 09/08/2024 [id number] A healthy lifestyle: care instructions [email or web address] Not available 09/08/2024 10:49:03 A healthy lifestyle: care instructions kbarbero Not available 09/12/2024 11:15:14 Reason for Referral None Reported. Results Created Date Observation Date Name Description Value Unit Range Abnormal Flag Note LastModifiedBy Organization Detail LastModifiedTime 09/09/19 25 09/09/2024 TSH+F REE T4 TSH 2.840 uIU/m L 0.450- 4.500 Not Available [facility] ([facility]) [address], [place], [address], 09/09/2024 08:20:55 09/09/19 25 09/09/2024 TSH+F REE T4 T4,free(dire ct) 0.88 NG/dL 0.82-1 .77 Not Available [facility] ([facility]) [address] [place], [address], 09/09/2024 08:20:55 09/09/19 25 09/09/2024 LIPID PANEL WITH LDL/H DL RATIO cholesterol, total 243 mg/dL 100-19 9 above high normal Not Available [facility] ([facility]) [address] [place], [address], 09/09/2024 08:20:56 09/09/19 25 09/09/2024 LIPID PANEL WITH LDL/H DL RATIO triglyceride s 171 mg/dL 0-149 above high normal Not Available [facility] ([facility]) [address] [place], [address], 09/09/2024 08:20:56 09/09/19 25 09/09/2024 LIPID PANEL WITH LDL/H DL RATIO HDL cholesterol 32 mg/dL >39 below low normal Not Available [facility] ([facility]) [address] [place], [address], 09/09/2024 08:20:56 09/09/19 25 09/09/2024 LIPID PANEL WITH LDL/H DL RATIO VLDL cholesterol yuliya 32 mg/dL 5-40 Not Available [facility] ([facility]) [address] [place], [address], 09/09/2024 08:20:56 09/09/19 25 09/09/2024 LIPID PANEL WITH LDL/H DL RATIO LDL chol calc ([facility]) 179 mg/dL 0-99 above high normal Not Available [facility] ([facility]) [address] [place], [address], 09/09/2024 08:20:56 09/09/19 25 09/09/2024 LIPID PANEL WITH LDL/H DL RATIO LDL/HDL ratio 5.6 ratio 0.0-3. 2 above high normal LDL/H DL Ratio Men Women 1/2 Avg.R isk 1.0 1.5 Avg.R isk 3.6 3.2 2X Avg.R isk 6.2 5.0 3X Avg.R isk 8.0 6.1 Not Available [facility] ([facility]) [address] [place], [address], 09/09/2024 08:20:56 09/09/19 25 09/09/2024 COMP. METAB OLIC PANEL (14) glucose 166 mg/dL 70-99 above high normal Not Available [facility] ([facility]) [address] [place], [address], 09/09/2024 08:20:57 09/09/19 25 09/09/2024 COMP. METAB OLIC PANEL (14) BUN 10 mg/dL 6-20 Not Available [facility] ([facility]) [address] [place], [address], 09/09/2024 08:20:57 09/09/19 25 09/09/2024 COMP. METAB OLIC PANEL (14) creatinine 0.54 mg/dL 0.57-1 .00 below low normal Not Available [facility] ([facility]) [address] [place], [address], 09/09/2024 08:20:57 09/09/19 25 09/09/2024 COMP. METAB OLIC PANEL (14) eGFR 128 mL/mi n/1.7 3 >59 Not Available [facility] ([facility]) [address] [facility] [place], [address], 09/09/2024 08:20:57 09/09/19 25 09/09/2024 COMP. METAB OLIC PANEL (14) BUN/creatini ne ratio 19 9-23 Not Available [facility] ([facility]) [address], [place], [address], 09/09/2024 08:20:57 09/09/19 25 09/09/2024 COMP. METAB OLIC PANEL (14) sodium 137 mmol/ L 134-14 4 Not Available [facility] ([facility]) [address] [facility] [place], [address], 09/09/2024 08:20:57 09/09/19 25 09/09/2024 COMP. METAB OLIC PANEL (14) potassium 4.0 mmol/ L 3.5-5. 2 Not Available [facility] ([facility]) [address] [facility] [address], [place], [address], 09/09/2024 08:20:57 09/09/19 25 09/09/2024 COMP. METAB OLIC PANEL (14) chloride 99 mmol/ L 96-106 Not Available [facility] ([facility]) [address], [place], [address], 09/09/2024 08:20:57 09/09/19 25 09/09/2024 COMP. METAB OLIC PANEL (14) carbon dioxide, total 21 mmol/ L 20-29 Not Available [facility] ([facility]) [address], [place], [address], 09/09/2024 08:20:57 09/09/19 25 09/09/2024 COMP. METAB OLIC PANEL (14) calcium 9.6 mg/dL 8.7-10 .2 Not Available [facility] ([facility]) [address] [facility] [place], [address], 09/09/2024 08:20:57 09/09/19 25 09/09/2024 COMP. METAB OLIC PANEL (14) protein, total 7.0 g/dL 6.0-8. 5 Not Available [facility] ([facility]) [address] [facility] [place], [address], 09/09/2024 08:20:57 09/09/19 25 09/09/2024 COMP. METAB OLIC PANEL (14) albumin 4.4 g/dL 4.0-5. 0 Not Available [facility] ([facility]) [address], [place], [address], 09/09/2024 08:20:57 09/09/19 25 09/09/2024 COMP. METAB OLIC PANEL (14) globulin, total 2.6 g/dL 1.5-4. 5 Not Available [facility] ([facility]) [address] [facility] [place], [address], 09/09/2024 08:20:57 09/09/19 25 09/09/2024 COMP. METAB OLIC PANEL (14) bilirubin, total 0.4 mg/dL 0.0-1. 2 Not Available [facility] ([facility]) [address] [facility] [address], [place], [address], 09/09/2024 08:20:57 09/09/19 25 09/09/2024 COMP. METAB OLIC PANEL (14) alkaline phosphatase 72 IU/L 44-121 Not Available [facility] ([facility]) [address], [place], [address], 09/09/2024 08:20:57 09/09/19 25 09/09/2024 COMP. METAB OLIC PANEL (14) AST (SGOT) 31 IU/L 0-40 Not Available [facility] ([facility]) [address], [place], [address], 09/09/2024 08:20:57 09/09/19 25 09/09/2024 COMP. METAB OLIC PANEL (14) ALT (SGPT) 38 IU/L 0-32 above high normal Not Available [facility] ([facility]) [address] [place], [address], 09/09/2024 08:20:57 09/09/19 25 09/09/2024 VITAM IN B12 AND FOLAT E vitamin B12 942 pg/mL 232-12 45 Not Available [facility] ([facility]) [address] [place], [address], 09/09/2024 08:20:58 09/09/19 25 09/09/2024 VITAM IN B12 AND FOLAT E folate (folic acid), serum 6.9 NG/mL >3.0 A serum folat e ellen ntrat ion of less than 3.1 ng/mL is consi dered to repre sent clini yuliya defic iency . Not Available [facility] ([facility]) [address] [place], [address], 09/09/2024 08:20:58 09/09/19 25 09/09/2024 IRON AND TIBC iron bind.cap.(TI BC) 311 ug/dL 250-45 0 Not Available [facility] ([facility]) [address] [place], [address], 09/09/2024 08:20:59 09/09/19 25 09/09/2024 IRON AND TIBC UIBC 231 ug/dL 131-42 5 Not Available [facility] ([facility]) [address] [place], [address], 09/09/2024 08:20:59 09/09/19 25 09/09/2024 IRON AND TIBC iron 80 ug/dL 27-159 Not Available [facility] ([facility]) [address] [place], [address], 09/09/2024 08:20:59 09/09/19 25 09/09/2024 IRON AND TIBC iron saturation 26 % 15-55 Not Available [facility] ([facility]) [address], [place], [address], 09/09/2024 08:20:59 09/09/1909/09/2024 HEMOG LOBIN A1C hemoglobin A1C 7.1 % 4.8-5. 6 above high normal Predi abete s: 5.7 - 6.4 Diabe debra: >6.4 Glyce kirk contr ol for adult s with diabe debra: <7.0 Not Available [facility] ([facility]) [address] [place], [address], 09/09/2024 08:21:00 09/09/1909/09/2024 GERONIMO TIN ferritin 78 NG/mL 15-150 Not Available [facility] ([facility]) [address] [place], [address], 09/09/2024 08:21:01 09/09/1909/09/2024 CBC WITH DIFFE RENTI AL/PL ATELE T WBC 8.8 x10e3 /uL 3.4-10 .8 Not Available [facility] ([facility]) [address], [place], [address], 09/09/2024 08:21:02 09/09/1909/09/2024 CBC WITH DIFFE RENTI AL/PL ATELE T RBC 5.27 x10e6 /uL 3.77-5 .28 Not Available [facility] ([facility]) [address] [place], [address], 09/09/2024 08:21:02 09/09/1909/09/2024 CBC WITH DIFFE RENTI AL/PL ATELE T hemoglobin 13.8 g/dL 11.1-1 5.9 Not Available [facility] ([facility]) [address] [place], [address], 09/09/2024 08:21:02 09/09/1909/09/2024 CBC WITH DIFFE RENTI AL/PL ATELE T hematocrit 44.8 % 34.0-4 6.6 Not Available [facility] ([facility]) [address] [place], [address], 09/09/2024 08:21:02 09/09/19 25 09/09/2024 CBC WITH DIFFE RENTI AL/PL ATELE T MCV 85 fL 79-97 Not Available [facility] ([facility]) [address] [facility] [address], [place], [address], 09/09/2024 08:21:02 09/09/1909/09/2024 CBC WITH DIFFE RENTI AL/PL ATELE T MCH 26.2 pg 26.6-3 3.0 below low normal Not Available [facility] ([facility]) [address] [place], [address], 09/09/2024 08:21:02 09/09/1909/09/2024 CBC WITH DIFFE RENTI AL/PL ATELE T MCHC 30.8 g/dL 31.5-3 5.7 below low normal Not Available [facility] ([facility]) [address] [place], [address], 09/09/2024 08:21:02 09/09/1909/09/2024 CBC WITH DIFFE RENTI AL/PL ATELE T RDW 12.5 % 11.7-1 5.4 Not Available [facility] ([facility]) [address] [place], [address], 09/09/2024 08:21:02 09/09/1909/09/2024 CBC WITH DIFFE RENTI AL/PL ATELE T platelets 295 x10e3 /uL 150-45 0 Not Available [facility] ([facility]) [address] [place], [address], 09/09/2024 08:21:02 09/09/1909/0909/09/2024 CBC WITH DIFFE RENTI AL/PL ATELE T neutrophils 68 % notest ab. Not Available [facility] ([facility]) [address] [facility] [address], [place], [address], 09/09/2024 08:21:02 09/09/19 25 09/09/2024 CBC WITH DIFFE RENTI AL/PL ATELE T lymphs 23 % notest ab. Not Available [facility] ([facility]) [address] [facility] [address], [place], [address], 09/09/2024 08:21:02 09/09/19 25 09/09/2024 CBC WITH DIFFE RENTI AL/PL ATELE T monocytes 6 % notest ab. Not Available [facility] ([facility]) [address] [facility] [address], [place], [address], 09/09/2024 08:21:02 09/09/19 25 09/09/2024 CBC WITH DIFFE RENTI AL/PL ATELE T eos 2 % notest ab. Not Available [facility] ([facility]) [address] [place], [address], 09/09/2024 08:21:02 09/09/19 25 09/09/2024 CBC WITH DIFFE RENTI AL/PL ATELE T basos 1 % notest ab. Not Available [facility] ([facility]) [address] [facility] [address], [place], [address], 09/09/2024 08:21:02 09/09/1909/09/2024 CBC WITH DIFFE RENTI AL/PL ATELE T neutrophils (absolute) 6.1 x10e3 /uL 1.4-7. 0 Not Available [facility] ([facility]) [address] [facility] [address], [place], [address], 09/09/2024 08:21:02 09/09/19 25 09/09/2024 CBC WITH DIFFE RENTI AL/PL ATELE T lymphs (absolute) 2.0 x10e3 /uL 0.7-3. 1 Not Available [facility] ([facility]) [address], [place], [address], 09/09/2024 08:21:02 09/09/19 25 09/09/2024 CBC WITH DIFFE RENTI AL/PL ATELE T monocytes(ab solute) 0.5 x10e3 /uL 0.1-0. 9 Not Available [facility] ([facility]) [address] [facility] [address], [place], [address], 09/09/2024 08:21:02 09/09/1909/09/2024 CBC WITH DIFFE RENTI AL/PL ATELE T eos (absolute) 0.1 x10e3 /uL 0.0-0. 4 Not Available [facility] ([facility]) [address] [facility] [address], [place], [address], 09/09/2024 08:21:02 09/09/1909/09/2024 CBC WITH DIFFE RENTI AL/PL ATELE T baso (absolute) 0.1 x10e3 /uL 0.0-0. 2 Not Available [facility] ([facility]) [address] [facility] [address], [place], [address], 09/09/2024 08:21:02 09/09/1909/09/2024 CBC WITH DIFFE RENTI AL/PL ATELE T immature granulocytes 0 % notest ab. Not Available [facility] ([facility]) [address] [facility] [address], [place], [address], 09/09/2024 08:21:02 09/09/1909/09/2024 CBC WITH DIFFE RENTI AL/PL ATELE T immature grans (abs) 0.0 x10e3 /uL 0.0-0. 1 Not Available [facility] ([facility]) [address] [facility] [address], [place], [address], 09/09/2024 08:21:02 09/09/19 25 09/09/2024 VITAM IN D, 25-HY DROXY vitamin D, 25-hydroxy 45.1 NG/mL 30.0-1 00.0 Vitam in D defic iency has been defin ed by the Insti tute of Medic ine and an Endoc rine Socie ty pract ice guide line as a level of serum 25-OH vitam in D less than 20 ng/mL (1,2) . The Endoc rine Socie ty went on to furth er defin e vitam in D insuf ficie ncy as a level betwe en 21 and 29 ng/mL (2). 1. IOM (Inst itute of Medic ine). 2010. Rejia ry refer ence intfifi es for calci um and D. Luigi monteiro [place]: The [facility] . 2. Arjun turk MF, Dionne adam [place], [place] off-F errar i SHRESTHA, et al. Evalu ation , treat ment, and preve ntion of vitam in D defic iency : an Endoc rine Socie ty clini yuliya pract ice guide line. JCEM. 2010; 96(7) :1911 -30. Not Available [facility] ([facility]) [address] [facility] [address], [place], [address], 09/09/2024 08:21:03 Result Notes None recorded. Problems Name Problem SNOMED Code Status Onset Date Resolution Date Notes Provider Name and Address Organization Details Recorded Time Prediabetes 128315795 Active 2024 Rylee Sinha [place] null, [place] [facility] 10:33:58 Mild major depression, single episode 87374076 Active 2024 Rylee Sin[place], [place] [facility] 10:34:16 Generalized anxiety disorder 48501700 Active 2024 Rylee Sinha [place], [place] [facility] 10:34:25 Neoplasm of pituitary gland 114407523 Active 2024 ELLE MORALES Attn: Nikunj valenzuela,[address] [facility], [place], [address], [facility] 11:14:58 Gastroesophage al reflux disease without esophagitis 530517977 Active 2024 ELLE MORALES Attn: Nikunj valenzuela,[address] [facility], [place], [address], [facility] 11:14:59 Problem Notes None recorded. Procedures Surgical History Date Name Laterality Status Provider Name and Address Organization Details Recorded Time 05/27/2024 Date of Last Pap Smear completed Rylee Sinha MA [facility] 09/08/2024 10:35:01 Imaging Results None recorded. Procedure Notes None recorded. Medical Equipment None Reported. Allergies Allergen ID Allergen Name Allergen Category Reaction Reaction Severity Criticality Documentation Date Start Date Code Code System Note Provider Name and Address Organization Details Recorded Time 19151102 lactase medicatio n Not available Not available Not available 09/08/2024 97375 RxNorm Rylee Sinha MA null, [facility] 10:30:48 Medications Name Sig Start Date Stop Date Status Note LastModified by Organization Details LastModified Time medroxypro gesterone 10 mg tablet Take 1 tablet every day by oral route as directed for 30 days. active take for 14 days every other month Not Available Not Available Not Available metformin 500 mg tablet TAKE 1 TABLET EVERDAY WITH MEALS FOR 1 WK, THEN TAKE 1 TABLET TWICE A DAY WITH MEALS FOR 1 WK, THEN TAKE 2 TABLETS TWICE A DAY WITH MEALS FOR 30 DAYS 2024 active Not Available Not Available Not Avai lable famotidine 10 mg tablet Take 1 tablet every day by oral route as needed for 30 days. active Not Available Not Available No t Available trazodone 50 mg tablet Take 0.5 tablets every day by oral route as needed for 30 days. active Not Available Not Available No t Available cyanocobal rivera (vit B-12) 1,000 mcg tablet Take 1 tablet every day by oral route as directed for 30 days. active Not Available Not Available No t Available trazodone 100 mg tablet Take 1 tablet twice a day by oral route. 09/08 completed Not Available Not Available Not Available progestero ne micronized 200 mg capsule Take 1 capsule every day by oral route as directed for 14 days. active Not Available Not Available No t Available omeprazole 20 mg capsule,de layed release Take 1 capsule every day by oral route. active Not Available Not Available No t Available estradiol 0.1 mg/24 hr weekly transderma l patch Apply 1 patch every week by transderm al route for 30 days. active Not Available Not Available No t Available escitalopr am 10 mg tablet Take 1 tablet every day by oral route. active Not Available Not Available No t Available clobetasol 0.05 % lotion APPLY A THIN LAYER TO THE AFFECTED AREA(S) BY TOPICAL ROUTE 2 TIMES PER DAY active Not Available Not Available No t Available Vitamin D3 Vit D3 125 mcg active Not Available Not Available No t Available vitamin B12 2,500 mcg-folic acid 400 mcg disintegra ting tablet Take by oral route. 09/08 completed Not Available Not Available Not Available Vitals Date Recorded Heart rate Provider Name an d Address Organization Details Last Updated DateTime 09/08/2024 98 /min ELLE MORALES Attn: Accounting,[address] [place], [address], [facility] 09/12/2024 11:10:33 Date Recorded Body weight Body mass index (BMI) Body height Oxygen saturation Oxygen saturation in Arterial blood by Pulse oximetry Heart rate Respiratory rate Systolic And Diastolic Provider Name and Address Organization Details Last Updated DateTime 5 947696. 01 g 43.6 kg/m2 172.72 cm 97 % 97 % 108 /min 16 /min 138/82 mm[Hg] Rylee Sinha MA [facility] 10:30:25 Date Recorded Body height Body mass index (BMI) Body weight Oxygen saturation Oxygen saturation in Arterial blood by Pulse oximetry Heart rate Respiratory rate Systolic And Diastolic Provider Name and Address Organization Details Last Updated DateTime 5 172.72 cm 43.7 kg/m2 862088. 41 g 98 % 98 % 93 /min 17 /min 126/93 mm[Hg] Erin Ag MA [facility] 11:00:29 Social History Question Answer Notes LastModified by Organizat ion Details LastModified Time Tobacco Smoking Status Never Smoker Rylee Sinha MA null, [facility] 09/08/2024 10:35:15 What Is Your Level Of Caffeine Consumption? Moderate Information not available 10/13/2024 What Was The Date Of Your Most Recent Tobacco Screening? 10/13/2024 Information not available 10/13/2024 Has Tobacco Cessation Counseling Been Provided? Yes [email or web address] Information not available 09/08/2024 On What Date Was Tobacco Cessation Counseling Provided? 10/13/2024 Information not available 10/13/2024 Sex: Unknown Functional Status Question Answer Note LastModified by Organizat ion Details LastModified Time Do you use any illicit or recreational drugs? No Information not available 10/13/2024 What is your level of alcohol consumption? None Information not available 10/13/2024 Mental Status None recorded. Family History Relationship Description Onset Age of this Age Resolved Age Notes LastModified by Organization Details LastModified Time Father No current problems or disability [email or web address] Not available 09/08 10:35:05 Mother No current problems or disability Not available 09/08 10:35:05 Medical History Condition Response Coronary Artery Disease N Other N Atrial Fibrillation N High Blood Pressure N Depression Y COPD N Blood Clots N Anxiety Disorder N Muscle, Joint, or Bone Problems N Arthritis N Acid Reflux (GERD) N Cancer N Stroke N ADHD N High Cholesterol N Liver Disease N Schizophrenia N Headaches N Thyroid Problems N Kidney or Bladder Problems N GI Problems N Have you had a mammogram in the last yea r? N Eating Disorder N Skin Problems N Anemia N Heart Attack (CA) N Diabetes N Seizures/Epilepsy N Have you had a colonoscopy in the last 1 0 years? N Asthma N Allergies N Have you had a PSA blood test in the las t year? N Substance Abuse N Hepatitis N Heart Failure N Osteoporosis N Gynecological History Statement/Question Response Date of Last Pap Smear 05/27/2024 Age at Menarche 14 Date of LMP 08/15/2024 Age at First Child 1 Obstetrics History GPAL:G 0 P 0 0 0 0 Immunizations Vaccine Type Date Status Note Provider Nam e and Address Organization Details Recorded Time Hep A, adult 09/08/2019 completed Not Available [facility] 10/13/2024 10:53:34 Past Encounters Encounter ID Performer Location Encounter Start Date Encounter Closed Date Diagnosis/Indication Diagnosis SNOMED-CT Code Diagnosis ICD10 Code Diagnosis Note [id number] Jake Hendrickson MD [facility] [address] [place] [address] 09/08/2024 10:16:27 09/08/2024 11:07:06 Neoplasm of pituitary gland 430868919 D49.7 diagnosed age 19follows with Endocrine, Reproducti ve and fertility specialist and neurosurge rylast MRI 2 yrs agotold that tumor is 1.4 cmextremel y low estrogen level, on estrogen patch, progestero ne Obese class III 94086398 5 E66.813 routine labs Gastroesop hageal reflux disease without esophagitis 347608815 K21.9 controlled on omeprazole Daytime somnolence 11320 47201 00 G47.19 no motivation , lacking energyorde red sleep study Vitamin D deficiency 347 34427 E55.9 Cobalamin deficiency 190 960969 E53.8 Iron deficiency 84500719 E61.1 requesting to check iron levels Depression screening 171 408951 Z13.31 2 [id number] Jake Hendrickson MD [facility] [address] [place] [address] 10/13/2024 10:52:15 10/13/2024 11:28:19 Type 2 diabetes mellitus 01303897 E11.9 a1c 7.1 Mixed hyperlipidemia 267 309594 E78.2 Daytime somnolence 69593 94050 00 G47.19 no motivation , lacking energyorde red sleep study Health Concerns Section Related Observation LastModified by Organization Detai ls LastModified Time None Recorded Concern Status LastModified by Organization Details LastModified Time None Recorded Advance Directives Directive None Recorded Payers Insurance Date Sequence Insurance Name Policy Number Policy Singer Covered Member ID Singer Member ID Guarantor Name 10/13/2024 1 [employer] BETTER HEALTH OF [facility] ON OR AFTER 02/27/2020 (MEDICAID REPLACEMENT - HMO) Asha Clemons [id number] Asha Clemons 10/13/2024 1 [employer] (POS II) [id number] Asha Clemons [id number] Asha Clemons Notes Date Note Type Note Provider Name and Address Organization Details Recorded Time 09/08/2024 text/html Patient presents to establish care as a new patient. She was diagnosed with a pituitary tumor at age 19 due to not having menstrual cycles. She is on estrogen patches due to low estrogen level. Pt follows with a Reproductive Endocrine and Fertility specialist, Dr. Harman at [facility]. Follows with endocrinology, Dr. Grant and and follows with Neurosurgery, Dr. Manzanares. Last brain MRI was 2 years ago. Complains of low energy levels most of the time, can not force herself to cook and does not feel motivated. Denies depression symptoms. ELLE MORALES Attn: Accounting[address] [place], [address], [facility] 09/12/2024 11:19:01 OBGyn Episode No OBEpisode recorded.
--- OUTSIDE RECORDS SUMMARY | 2024-10-16 09:15 | XMS_ITS | Patient Health Record ---
Author Organization [facility] [employer] Address [address] [place] [address] Care Team Providers Care Trust Mail Clerk Name Role Phone Sabra Stock MD Primary Care Provider Carolina Preston Unavailable [phone] Allergies Allergen (clinical drug ingredient) Drug/Non Drug Allergy documented on EMR Reaction Allergy Type Onset Date Status MILK (uncoded) Unknown Allergy 04/30/2023 Acti ve MILK CONTAINING PRODUCTS (DAIRY) (uncoded) Unknown Allergy 04/30/2023 Active Reason For Referral No Information Medications Medication SIG (Take, Route, Frequency, Duration) Notes Start Date End Date Status Estradiol 0.1 MG/24HR Transdermal 04/30/2023 Active Progesterone Micronized 200 MG Oral 04/30/2023 Active Escitalopram Oxalate 10 MG 1 tablet Orally Once a day; Duration: 90 days AUROBINDO BRAND ONLY AUROBINDO BRAND ONLY Active traZODone HCl 50 MG 1 tablet at bedtime as needed Orally Once a day; Duration: 90 days Active Omeprazole 20 MG Oral 04/30/2023 Ac tive Progesterone *Pick strength-form from [employer] for eRX* 04/30/2023 Active Social History Tobacco Use: Social History Observation Description Date Details (start date - stop date) Never Smoker NA - NA Sex Assigned At : Social History Observation Description Sex Assigned At Female Household Question Answer Notes Marital status: single Number of adults in household: 1 Number of children in household: 0 Tobacco Control (Standard) Question Answer Notes Tobacco use: Nonsmoker Problems Problem Type SNOMED Code ICD Code Onset Dates Problem Status W/U Status Risk Notes Problem Generalized anxiety disorder (90998162) AFSHAN (generalized anxiety disorder) (F41.1) Active confirmed Problem Mild recurrent major depression (35120232) MDD (major depressive disorder), recurrent episode, mild (F33.0) Active confirmed Vital Signs Heart Rate 97 /min 08/11/2024 Height-cm 170.18 cm 08/11/2024 Blood pressure diastolic 90 mm Hg 08/11/2024 Weight-kg 131.54 kg 08/11/2024 Height 67.00 in 08/11/2024 Blood pressure systolic 138 mm Hg 08/11/2024 Weight 290 lbs 08/11/2024 BMI 45.42 kg/m2 08/11/2024 Encounters Encounter Location Date Provider Diagnosis [facility] [address] [address] 02/11/2024 Carolina Breen MDD (major depressiv e disorder), recurrent episode, mild F33.0 and AFSHAN (generalized anxiety disorder) F41.1 [facility] [address] [address] 06/27/2024 Carolina Breen AFSHAN (generalized anxiety disorder) F41.1 ; Encounter for screening for cardiovascular disorders Z13.6 ; Dietary counseling and surveillance Z71.3 ; Encounter for screening for depression Z13.31 and MDD (major depressive disorder), recurrent episode, mild F33.0 [facility] [address] [address] 08/11/2024 Carolina Breen AFSHAN (generalized anxiety disorder) F41.1 ; MDD (major depressive disorder), recurrent episode, mild F33.0 ; Negative depression screening Z13.31 ; Encounter for screening for cardiovascular disorders Z13.6 ; Dietary counseling and surveillance Z71.3 and Encounter for screening for depression Z13.31 [facility] [address] [address] 06/21/2024 Carolina Breen Assessments Encounter Date Diagnosis (ICD Code) Assessment Notes Treatment Notes Treatment Clinical Notes Section Notes 02/11/2024 MDD (major depressive disorder), recurrent episode, mild (ICD-10 - F33.0) SSRI/SNRI side effects discussed including but not limited to, gastric upset, nausea, vomiting, diarrhea and/or constipation, weight changes, sexual side effects including loss of libido, increased suicidal thoughts/behavi ors in children and young adults, and serotonin syndrome. 1. MDD overall stable, slight increase in depressive symptoms secondary to trauma processing with counselor, feels this is situational. -cont escitalopram 10mg daily -cont counseling 2. AFSHAN stable -escitalopram 10mg daily -cont counseling -encourage non-pharmaceut ical treatments including deep breathing, grounding exercises, physical activity, healthy diet. 06/27/2024 AFSHAN (generalized anxiety disorder) (ICD-10 - F41.1) 08/11/2024 AFSHAN (generalized anxiety disorder) (ICD-10 - F41.1) 08/11/2024 MDD (major depressive disorder), recurrent episode, mild (ICD-10 - F33.0) SSRI/SNRI side effects discussed including but not limited to, gastric upset, nausea, vomiting, diarrhea and/or constipation, weight changes, sexual side effects including loss of libido, increased suicidal thoughts/behavi ors in children and young adults, and serotonin syndrome. 02/11/2024 AFSHAN (generalized anxiety disorder) (ICD-10 - F41.1) 1. MDD overall stable, slight increase in depressive symptoms secondary to trauma processing with counselor, feels this is situational. -cont escitalopram 10mg daily -cont counseling 2. AFSHAN stable -escitalopram 10mg daily -cont counseling -encourage non-pharmaceut ical treatments including deep breathing, grounding exercises, physical activity, healthy diet. 08/11/2024 Negative depression screening (ICD-10 - Z13.31) 06/27/2024 Encounter for screening for cardiovascular disorders (ICD-10 - Z13.6) 06/27/2024 Dietary counseling and surveillance (ICD-10 - Z71.3) 08/11/2024 Encounter for screening for cardiovascular disorders (ICD-10 - Z13.6) 08/11/2024 Dietary counseling and surveillance (ICD-10 - Z71.3) 06/27/2024 MDD (major depressive disorder), recurrent episode, mild (ICD-10 - F33.0) SSRI/SNRI side effects discussed including but not limited to, gastric upset, nausea, vomiting, diarrhea and/or constipation, weight changes, sexual side effects including loss of libido, increased suicidal thoughts/behavi ors in children and young adults, and serotonin syndrome. 06/27/2024 Encounter for screening for depression (ICD-10 - Z13.31) 08/11/2024 Encounter for screening for depression (ICD-10 - Z13.31) 02/11/2024 Other Stable, continue current medications. Discussed if she feels she would like to increase escitalopram to contact office. Patient educated on all medications including potential benefits, side effects, risks. Educated on proper dosing schedule and importance of compliance. escitalopram-- AUROBINDO BRAND ONLY due to allergy 1. MDD overall stable, slight increase in depressive symptoms secondary to trauma processing with counselor, feels this is situational. -cont escitalopram 10mg daily -cont counseling 2. AFSHAN stable -escitalopram 10mg daily -cont counseling -encourage non-pharmaceut ical treatments including deep breathing, grounding exercises, physical activity, healthy diet. 06/27/2024 Other Start trazodone 50mg nightly as needed for insomnia Patient educated on all medications including potential benefits, side effects, risks. Educated on proper dosing schedule and importance of compliance. -Assessment and treatment plan reviewed with patient. -Compliance with treatment plan importance discussed. -Discussed the risks/benefits of this medication -Discussed medication side effects. -Contact office if symptoms worsen. -Discussed that it can take up to 6-8 weeks to see full therapeutic effects of psychotropic medications. -Crisis prevention hotline 988. 08/11/2024 Other Stable on current medication regimen, continue at current doses. -Refills sent in today -No concerns today Patient educated on all medications including potential benefits, side effects, risks. Educated on proper dosing schedule and importance of compliance. -Assessment and treatment plan reviewed with patient. -Compliance with treatment plan importance discussed. -Discussed the risks/benefits of this medication -Discussed medication side effects. -Contact office if symptoms worsen. -Discussed that it can take up to 6-8 weeks to see full therapeutic effects of psychotropic medications. -Crisis prevention hotline 988. Plan Of Treatment Next Appt Details Provider Name:Carolina ceja, 02/09/2025 08:00:00 AM, [address], [address], [place], [address], Insurance Providers Payer Name Payer Address Payer Phone Subscriber Number Group Number Insured Name Patient Relationship to Insured Coverage Start Date Coverage End Date [employer] [address] [place] [phone] [id number] CAN SHELBY Self - patient is the insured Medical (General) History Medical History History ICD Code Problems: Generalized anxiety disorder Moderate recurrent major depression ,
[2024-11-04 12:53] VITALS: BMI 44.1
--- NOTE | 2024-11-04 12:53 | P.SLEEP_ITS ---
Sleep Study - Home Unattended Date of Study: 10/16/24 Ordering Provider: Giana Laws, ELLE Interpreting Provider: Lubna Lui, DO Home Sleep Study Type: Watch PAT Height: 1.73 m Weight: 131.542 kg Body Mass Index: 44.1 Neck Circumference (inches): 15.5 [place]: 6 Reason for Sleep Study Daytime hypersomnia Sleep History The patient is a 29-year-old female who had a sleep study ordered by her primary care for evaluation of sleep apnea. The patient admits to excessive daytime sleepiness and trouble maintaining sleep. She denies snoring, interruptions in breathing while asleep, choking or gasping at night, and having trouble breathing on her back. She does have morning headaches and a dry or sore mouth/throat in the morning. She denies nocturnal heartburn, nocturia, having trouble falling asleep, and difficulty returning to sleep if she wakes up throughout the night. She denies any hypnotic or sedative use and feeling anxious about sleep. She does feel tired or sleepy during the day, tired in the morning, and has the urge to fall asleep during the day. She does feel drowsy while driving. She denies sleep paralysis, cataplexy, and hypnagogic/hypnopompic hallucinations. She denies clenching or grinding her teeth but does kick or jerk her legs excessively. She denies having a restless feeling in her legs. She goes to bed at 10 p.m. every night. It takes her 30 minutes to fall asleep. She gets 8 hours of sleep per night. Her sleep is not restorative on her days off. She denies taking any planned naps, dream enactment behavior, and sleepwalking. She consumes 1-2 cups of a caffeinated beverage per day. She denies tobacco and alcohol use and denies exercising on a regular basis. Sleep Procedure The sleep study was completed using WatchPAT a technically adequate device with seven channels: peripheral arterial tone, actigraphy, body position, snore, respiratory movement, pulse oximetry, sleep staging, and heart rate. Prior to using the device, the patient received verbal and written instructions for its application and was provided with the [employer] phone number for additional telephonic instruction with 24-hour availability of qualified personnel to answer questions. The study was scored using CMS guidelines. Sleep Architecture The total recording time is 8 hrs, 44 min. The total sleep time is 8 hrs, 0 min. Sleep latency is 10 minutes. REM latency is 30 minutes. The patient had 12 episodes of waking. Sleep architecture shows 16.1% deep sleep, 61.4% light sleep, and (as % Total Sleep Time) showed NREM (Light 61.4%; Deep 16.1%), and a 22.5% stage REM. The patient spent 29.4% of total sleep time in the supine position. Sleep efficiency was 91.60. Respiratory Analysis The overall AHI (pAHI 4%:) is 13.6. The overall AHI (pAHI 3%:) is 32.9. The central AHI is 0.1. The AHI was 31.3 in NREM and 38.8 in REM sleep. The AHI was 36.6 in Supine and 31.4 in Non-supine sleep. Percent of Sean Clemens respirations is 0.0. Oximetry Data The oxygen desaturation index (ANASTASIA 4%:) is 11.6. The mean saturation is 94%, and the lowest saturation is 85%. Time spent with saturation < 88% is 0.1 minutes. Snoring Profile Snoring average intensity is 42 dB. The patient snored above 45 decibels for 60.0 minutes, 12.5% of sleep time. Cardiac Profile The average pulse rate is 74 beats per minutes. The lowest pulse rate is 52 bpm. The highest pulse rate reported is 116 bpm. Suspected Afib total duration is 0:00:39, (h:m:sec). The longest Afibevent duration is 0:00:39. A suspected a rrhythmia flagged in the sleep report does not necessarily imply an arrhythmia condition is present, but rather suggests that further investigation should be considered. A-Fib events < 60 seconds may be artifact. Premature beats occur 2.5 per minute. Assessment and Plan Assessment and Plan (1) CHASITY (obstructive sleep apnea): Code(s): G47.33 - Obstructive sleep apnea (adult) (pediatric) Status: Acute Assessment and Plan: The patient had an overall AHI of 13.6 with desaturation down to 85%. This is consistent with mild sleep apnea. Due to the patient's anxiety/depression, she qualifies for treatment. I recommend that the patient be prescribed AutoPAP 5-15 cm H2O, CPAP mask/filters/tubing and heated humidity. A mandibular advancement device is also an acceptable treatment option. This should be used with all episodes of sleep.? Compliance should be reviewed within 31-90 days of starting therapy for usage greater than 4 hours per night greater than 70% of the nights. The patient should be asked about symptoms such as?excessive daytime sleepiness, quality of sleep, decreased nocturia, increased?mental functioning such as memory, mood, and concentration. Data The data obtained during this sleep study is adequate for interpretation. Certification This sleep study has been reviewed by a board certified sleep medicine physician.
== END 2024-10-17 10:14 | disposition home or self-care (01) ==
PROVIDERS: PCP Physician Assistant; Visit Provider Physician Assistant
DX: G47.30 Sleep apnea, unspecified (principal); G47.33 Obstructive sleep apnea (adult) (pediatric)
CPT/HCPCS: 95800